=== PATIENT | male | born 1960 | race Hispanic/Latino ===

== ENCOUNTER 2016-05-28 12:45 | Day surgery (SDC) | payer OTHER ==
[2016-05-23 10:13] LABS: Basophils % (Auto) 0.6 % (0.0-1.8); Eosinophils % (Auto) 0.5 % (0.0-4.3); Hematocrit 39.5 % (35.5-45.6); Hemoglobin 13.5 gm/dl (11.8-15.2); Mean Corpuscular HGB Conc 34 % (32-34); Mean Corpuscular Hemoglobin 29 pg (28-32); Mean Corpuscular Volume 84 fl (84-94); Platelet Count 221 K/mm3 (140-440); Red Blood Count 4.68 M/mm3 (3.65-5.03); Red Cell Distribution Width 13.6 % (13.2-15.2); White Blood Count 6.1 K/mm3 (4.5-11.0)
[2016-05-23 10:28] LABS: Alanine Aminotransferase 23 units/L (7-56); Albumin 4.4 g/dL (3.9-5); Albumin/Globulin Ratio 1.8 %; Alkaline Phosphatase 53 units/L (35-129); Anion Gap 17 mmol/L; BUN/Creatinine Ratio 11.25; Bilirubin,Total 0.3 mg/dL (0.1-1.2); Blood Urea Nitrogen 9 mg/dL (9-20); Carbon Dioxide 25 mmol/L (22-30); Chloride 103.6 mmol/L (98-107); Glucose 107 mg/dL (75-100); Potassium 3.9 mmol/L (3.6-5.0); Sodium 142 mmol/L (137-145); Total Protein 6.9 g/dL (6.3-8.2)
[~2016-05-28 12:45] MED LIST: NACL 0.9% 1000 ML 1,000 ML IV SCH; PEPCID PO NR; REGLAN PO NR; VERSED IV NR
[2016-05-28] MEDS ORDERED: ZOFRAN IV PRN (13:44)
--- NOTE | 2016-05-28 13:46 | Anesthesia Consultation ---
Anesthesia Consult and Med Hx Date of service: 05/28/16 - Airway Anesthetic Teeth Evaluation: Good, Caps (top front) ROM Head & Neck: Adequate Mental/Hyoid Distance: Adequate Mallampati Class: Class II Intubation Access Assessment: Probably Good - Pulmonary Exam CTA: Yes - Cardiac Exam Cardiac Exam: RRR - Pre-Operative Health Status ASA Pre-Surgery Classification: ASA2 Proposed Anesthetic Plan: General - Pulmonary Hx Smoking: Yes (CIGARETTES 1 PPD X 38 YRS, QUIT 1 YRS AGO) Hx Asthma: No Hx Sleep Apnea: Yes (+CPAP) - Cardiovascular System Hx Hypertension: Yes (FOR 15 YRS, DR. FOSTER- PCP) Hx Heart Attack/AMI: No - Central Nervous System Hx Seizures: No CVA: No Hx Back Pain: Yes Hx Psychiatric Problems: No - Endocrine Hx Renal Disease: No Hx Cirrhosis: No Hx Non-Insulin Dependent Diabetes: No Hx Thyroid Disease: No - Other Systems Hx Cancer: No Hx Obesity: No
--- NOTE | 2016-05-28 13:46 | Anesthesia Day of Surgery ---
Anesthesia Day of Surgery - Day of Surgery Patient Examined: Yes Patient H&P Reviewed: Yes Patient is NPO: Yes
--- NOTE | 2016-05-28 13:57 | Admit Criteria Form ---
Admission Criteria Documentation: AMBULATORY SURGERY EXCEPTION CRITERIA Ambulatory Surgery Exception Criteria ( Place 'X' for any and all applicable criteria): Surgery or procedure performed on ambulatory basis may require inpatient stay for[A] ANY ONE of the following(1)(2)(3)(4)(5)(6)(7)(8)(9): [X] I. A preoperative situation, condition, or finding that warrants inpatient stay as indicated by ANY ONE of the following: [] a) Inpatient care needed because of severity of a disease or condition rather than the surgery (eg, severe cardiac or respiratory disease, severe infection) (15) (16 ) (17) (18) [] b) Emergent procedure (eg, angioplasty for acute ischemia)(19) [] c) Complex surgical approach or situation as indicated by ANY ONE of the following(3): [] i) Open approach needed instead of usual endoscopic, transcatheter, or other less invasive procedure [] ii) Difficult approach because of previous operation [] iii) Airway monitoring required after open neck procedures(20)(21) [] iv) Large mass requiring unusually extensive dissection [] v) Additional complicating feature requiring inpatient care (eg, drain management)(22(23): [X] d) Major surgery in a pt with high anesthetic risk as indicated by ANY ONE of the following (2)(3)(5)(7)(8): [] i) ASA risk class III or higher (severe systemic disease impairing function) [D] [] ii) Advanced age (eg, older than 85 years)(14)(24) [] iii) Symptomatic heart failure(25) [] iv) Symptomatic asthma or COPD(8)(21) [] v) Morbid obesity with hemodynamic or respiratory problems(20)( 21)(26)(27) [X] vi) Obstructive sleep apnea(20)(21) [] vii) Former premature infants who are younger than 60 weeks [] viii) High risk for severe postoperative abnormalities (eg, severe postoperative hypocalcemia after parathyroidectomy for severe hyperparathyroidism)(27)( 28) [] ix) Unstable angina(25) [] e) Drug-related risk requiring inpatient stay as indicated by ANY ONE of the following(5)(10)(14)(32)(33) [] i) Procedure requires discontinuing drugs or other therapy (eg , antiarrhythmic medication, antiseizure medication), which necessitates inpatient observation or treatment.(18)(31) [] ii) Major surgery and high risk drug use as indicated by ANY ONE of the following: [] 1) Active abuse of cocaine or similar drug [] 2) Monoamine oxidase inhibitor use [] 3) Other drug identified as posing risk [] f) Inadequate outpatient care situation as indicated by ANY ONE of the following(5)(10)(14)(32)(33) [] i) Patient lives remote from medical facility and procedure has urgent complication potential, and temporary nearby residence cannot be arranged [] ii) Patient will have postprocedure incapacitation and inadequate assistance at home, or alternative level of care cannot be arranged. [] iii) Patient will have long general anesthesia or procedure side effect resolution time, and competent person to stay with patient on first postoperative night at home or alternative level of care cannot be arranged. []iv) Other inadequate outpatient situation that cannot be handled by other means [] II. A perioperative event, condition, or finding that warrants inpatient stay as indicated by ANY ONE of the following (1)(2)(3): [] a) Inadequate physiologic recovery: cardiovascular, respiratory, or hemodynamic status not normal or near preoperative baseline(18) [] b) Hemodynamic instability [] c) Patient not alert with near normal or baseline mental status [] d) Temperature not normal or as expected and not appropriate for outpatient treatment of condition [] e) Ambulatory or appropriate activity level status not yet achieved post procedure [E](34)(35)(36) [] f) Operative site not appropriate (eg, unexpected or excessive drainage or bleeding) [] g) Postoperative effects not resolved or adequately managed (eg, significant pain or vomiting not appropriate for outpatient or next level of care)(10)(12) [] h) Complicating features requiring inpatient care as indicated by ANY ONE of the following(37): [] i) Severe complications of procedure (eg, bowel injury, airway compromise, vascular injury,severe hemorrhage) [] ii) Extensive (eg, dissection far beyond usual scope of procedure ) or prolonged (eg, 120 minutes beyond usual) surgery needed requiring inpatient postoperative care [] iii) Conversion to an open or complex procedure that requires inpatient care (eg, open vs laparoscopic cholecystectomy, abdominal vs vaginal hysterectomy)(38) [] iv) Comorbid condition or test result identified during or post procedure that requires inpatient care (7) [] v) Malignant hyperthermia(30) [] vi) Other complicating feature requiring inpatient care(22)(23) Inpatient stay may be needed until ALL of the following are present (1)(2)(3)(4) (5)(6)(10)(14)(33)(40): []a) Physiologic recovery: cardiovascular, respiratory, and hemodynamic status normal or near preoperative baseline []b) Hemodynamic stability []c) Patient alert, with near normal or baseline mental status []d) Temperature appropriate: patient afebrile or temperature appropriate for outpt treatment of condition []e) Activity level appropriate: ambulatory or appropriate activity level post procedure []f) Operative site appropriate as indicated by ALL of the following: []i) Site dry or with expected drainage []ii) Any blood noted is as expected for procedure. []g) Postoperative effects resolved or managed as indicated by ALL of the following: []i) Pain management appropriate for outpatient (or next level of) care(10) []ii) Minimal nausea and vomiting: if present, successfully treated with oral medication(12) []iii) Headache, dizziness, or drowsiness (if present) are mild. []h) Voiding status acceptable as indicated by ANY ONE of the following: []i) Voiding spontaneously []ii) No voiding but instructions given for follow-up in 6 to 8 hours []iii) Urinary catheter in place, and instructions given for follow-up []i) Complicating features requiring inpatient care manageable at a lower level of care(37) []j) Comorbid conditions manageable at a lower level of care(37) The original [employer] content created by [employer] has been revised. The portions of the content which have been revised are identified through the use of italic text or in bold, and [facility] [employer] has neither reviewed nor approved the modified material. All other unmodified content is copyright [employer]. Please see references footnoted in the original [employer] edition 2016 Admission Criteria Met: Yes
[2016-05-28] MEDS ORDERED: ANCEF/STERILE WATER 2 GM/20 ML IV NR (14:10)
[2016-05-28] MEDS ORDERED: DIPRIVAN 10 MG/ML IV ONE (14:27)
[2016-05-28] MEDS ORDERED: XYLOCAINE MPF 2% ONE (14:28)
[2016-05-28] MEDS ORDERED: ZOFRAN ONE (14:28)
[2016-05-28] MEDS ORDERED: DECADRON ONE (14:28)
[2016-05-28] MEDS ORDERED: DILAUDID ONE ×3 (14:28→17:19)
[2016-05-28] MEDS ORDERED: ZEMURON IV ONE (14:28)
[2016-05-28] MEDS ORDERED: ROBINUL ONE ×2 (14:46→16:19)
[2016-05-28] MEDS ORDERED: BLOXIVERZ ONE (14:46)
[2016-05-28] MEDS ORDERED: MARCAINE 0.5% INFILTRATI ONE ×2 (15:18)
[2016-05-28] MEDS ORDERED: NACL 0.9% IR ONE (15:29)
[2016-05-28] MEDS ORDERED: ePHEDrine SULFATE ONE (15:34)
[2016-05-28] MEDS ORDERED: NACL 0.9% 1000 ML 1,000 ML ONE (15:37)
[2016-05-28] MEDS ORDERED: NEO SYNEPHRINE ONE (15:39)
[2016-05-28] MEDS ORDERED: NACL 0.9% 100 ML ONE (15:40)
[2016-05-28] MEDS ORDERED: PROAIR IH ONE (16:07)
--- NOTE | 2016-05-28 17:05 | Discharge Summary ---
Short Stay Discharge Plan Activity: advance as tolerated, no driving until cleared by PCP Diet: regular
[2016-05-28] MEDS: DILAUDID IV PRN ×4 (17:25→18:10)
[2016-05-28] MEDS ORDERED: NORCO 5/325 PO PRN (18:38)
--- NOTE | 2016-05-28 19:30 | Post Anesthesia Evaluation ---
- Post Anesthesia Evaluation Patient Participated: Yes Airway Patent: Yes Stable Respiratory Function: Yes Nausea/Vomiting: No Temp > 96.8F: Yes Pain Manageable: Yes Adequeate Hydration: Yes Anesthesia Complications: No Block Receding Appropriately: Not Applicable Patient on Ventilator: No
[2016-05-28 20:01] VITALS: BP 138/78
--- NOTE | 2016-05-28 22:19 | Operative Report ---
PREOPERATIVE DIAGNOSIS: Right large inguinal hernia. POSTOPERATIVE DIAGNOSIS: Right large inguinal hernia. SURGERY: Laparoscopic right inguinal hernia repair with conversion to open and the reason that the hernia was very large and there was no good exposure. URINE OUTPUT: About 100 mL. BLOOD LOSS: 50 mL. FINDINGS: Upon the laparoscopy, he had a very large inguinal canal, wide, measured about 2 x 2 cm and we tried to open that canal. We went through the preperitoneal approach, did not work because the hernial sac was very large. After multiple attempts to do it, it did not work, so I had to change it to an open hernia repair. So, all ____ were removed and we went ahead with the repair, we did apply a mesh graft. DESCRIPTION OF PROCEDURE: With the patient in the supine position, prepped and draped in usual fashion. The infraumbilical area was opened and the fascia was opened, then we were able to reach the anterior retroperitoneum. At which point, the trocar was inserted and insufflating the area with the CO2 pressure of 15, for which #5 trocar was inserted in the midline inferiorly and another 5 in the left lower quadrant. The anatomy was not well delineated and the mouth of the hernia sac was very large. I tried to dissect the hernia completely. It did not work. So at that point with multiple attempts we went ahead and we recommended to go and do it as an open. At that point, all the trocars were removed. Then, an incision was performed at the right lower quadrant, deep subcutaneous tissue all the way down to fascia, which was incised along its fibers. At that point, I went behind the spermatic cord with the use of ____ and to the spermatic cord, I was able to see the hernia sac that was very large. It was dissected free all the way to its base at which point suture ligature of 0 Ethibond was applied. Then, a fairly good sized lipoma that is about 10 x 2 x 2 cm, this was also removed in toto, tying it at its base in the same fashion. Then, the repair was performed. I used multiple stitches of Ethibond between the conjoined tendon medially and the ilioinguinal ligament laterally interruptedly all the way up to the internal inguinal ring, at which point I put another stitch below and above. Then, the mesh graft was applied in the usual fashion, tacking it to the fascia with use of 2-0 Prolene all around beyond the reconstructed internal inguinal ring. We were very much satisfied, we had good hemostasis. Then, the fascia was closed with continuous stitch of 0 Vicryl, the same for the subcutaneous tissue and skin with jeremiah. I did close the multiple small wound with the jeremiah, the fascia and the infraumbilical area also was closed with the Vicryl 0, interrupted, and the multiple skin incision with the jeremiah. JOB# [id number] SARAH/DESIREE
--- NOTE | 2016-05-28 22:56 | Discharge Summary ---
FINAL DIAGNOSIS: Right large inguinal hernia. HOSPITAL COURSE: This man was seen in my office last week because of pain in the right inguinal area. Apparently, he was having a mass that is enlarging in size over the last 1-2 months. He denied any trauma to the area. He was referred to me by Dr. Koo for further evaluation. Apparently, he was found to have a hernia in the area that is fairly large, so he was taken to the operating room today, 05/28/2016, where he underwent a laparoscopic right inguinal hernia repair with conversion to an open hernia repair and application of Marlex mesh graft area. Postop, he did well. He was in the recovery room for 1-2 hours and then he was discharged home to be seen in my office in 1 week. I gave him a prescription for Vicodin and for Dulcolax. To call me if he has any problem otherwise. I did indicate to his friend that he needs to be off work for a good 15 days. DIET: Ad oscar. JOB# [id number] SARAH/DESIREE
== END 2016-05-28 19:20 | disposition home or self-care (01) ==
LOC: OR 12:45
PROVIDERS: ATTEND Surgery
DX: K40.90 Unilateral inguinal hernia, without obstruction or gangrene, not specified as recurrent (principal); D17.6 Benign lipomatous neoplasm of spermatic cord; G47.30 Sleep apnea, unspecified; I10 Essential (primary) hypertension; M41.9 Scoliosis, unspecified; E78.00 Pure hypercholesterolemia, unspecified; Z87.891 Personal history of nicotine dependence
CPT/HCPCS: 36415; 49505; 80053; 85025; 88302; 88304; C1726; C1781; J0690; J1100; J1170; J2250; J2370; J2405; J2704; J2710; J7030